=== PATIENT | female | born 1965 | race Caucasian/White ===

== ENCOUNTER 2019-12-01 16:36 | Emergency (ER) | payer OTHER ==
[~2019-12-01] VITALS: Ht 165.1 cm; Wt 113.6 kg
[2019-12-01] MEDS ORDERED: LISI10TA4 PO (16:43)
--- NOTE | 2019-12-01 17:34 | REPVR ---
PROCEDURE INFORMATION: Exam: XR Right Ankle Exam date and time: 12/01/2019 5:19 PM Age: 54 years old Clinical indication: Pain; Ankle; Right; Additional info: Fall down 2-3 stairs TECHNIQUE: Imaging protocol: XR Right ankle. Views: 3 or more views. COMPARISON: No relevant prior studies available. FINDINGS: Bones/joints: Linear lucency projects over the distal fibular on the lateral view not visualized on the other views. Finding may represent a vascular groove however a incomplete fracture is not excluded. Correlation with clinical examination suggested. Otherwise unremarkable. Soft tissues: Diffuse ankle edema. IMPRESSION: Linear lucency projects over the distal fibular on the lateral view not visualized on the other views. Finding may represent a vascular groove however a incomplete fracture is not excluded. Correlation with clinical examination suggested. Electronically signed by: Jaret Baxter On 12/01/2019 17:34:20 PM
[2019-12-01 18:31] VITALS: BP 150/73
== END 2019-12-01 18:32 | disposition home or self-care (01) ==
LOC: M ED 16:36
DX: S93.401A Sprain of unspecified ligament of right ankle, initial encounter (principal); R93.7 Abnormal findings on diagnostic imaging of other parts of musculoskeletal system; W10.8XXA Fall (on) (from) other stairs and steps, initial encounter; X50.1XXA Overexertion from prolonged static or awkward postures, initial encounter; Y92.098 Other place in other non-institutional residence as the place of occurrence of the external cause; I10 Essential (primary) hypertension; Z79.899 Other long term (current) drug therapy